=== PATIENT | male | born 1985 | race Caucasian/White ===

== ENCOUNTER 2020-03-31 19:26 | Inpatient (IN) | payer SELFPAY ==
[2020-03-31 19:27] VITALS: BP 149/91; PULSE 110; RESP 18; TEMP 36.8; O2SAT 93; BMI 36.0
--- NOTE | 2020-03-31 19:27 | W.ED.PSYCH ---
HPI - Psych General: Chief Complaint: Psychiatric Symptoms Stated Complaint: SI Time Seen by Provider: 03/31/20 19:27 Source: patient Mode of arrival: ambulatory Limitations: no limitations History of Present Illness: HPI Narrative: Patient is a 34-year-old male who presents to ED today brought by police for complaints of suicidal ideations. According to affidavits filled out by police officers they arrived to patient's home and noted several kitchen knives lying in the floor. He told the officers he was suicidal and had attempted to hang himself in the closet with a belt. Patient tells me he is suicidal. He states his girlfriend or left him this evening. He is also reporting homicidal ideations towards nobody in particular. He admits to auditory hallucinations and states he has had these for years however has never admitted to them. 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 MD complaint: suicidal ideation and feels depressed Context: significant life stressor Associated psychiatric symptoms: depression Associated symptoms: Reports auditory hallucinations, depression and suicidal ideation; Deny visual hallucinations or homicidal ideation Review of Systems Const: Denies: fever(s) or chills Card: Denies: chest pain, palpitations, lightheadedness or syncope Resp: Denies: dyspnea GI: Denies: abdominal pain, nausea, vomiting or diarrhea Musc: Denies: neck pain or back pain Skin/Breast: Denies: rash Neuro: Denies: headache(s), numbness in extremities, weakness in extremities or sensory changes Psych: Reports: depression, hopelessness, auditory hallucinations and suicidal ideation; Denies: anxiety, visual hallucinations or homicidal ideation Physical Exam Const: COMMON NORMALS: no acute distress, average body habitus, patient oriented x3, no limitations, healthy appearing, alert and well nourished GENERAL APPEARANCE: cooperative, well kempt and odor of alcohol detected ORIENTATION/CONSCIOUSNESS: Yes awake, Yes oriented to person, Yes oriented to place and Yes oriented to time OTHER: intoxicated Resp: COMMON NORMALS: normal respiratory effort and clear to auscultation bilaterally AUSCULTATION: clear to auscultation bilaterally Cardio: COMMON NORMALS: regular rate and regular rhythm RATE: regular rate RHYTHM: regular rhythm Neuro: ALYSON COMA SCALE: document GCS findings Duncan coma scale eye opening: Spontaneous Alyson coma scale verbal response: Orientated Alyson coma scale motor response: Obey commands Duncan coma scale total score: 15 COMMON NORMALS: patient oriented x3 SENSORIUM/ORIENTATION: Yes alert, Yes oriented to person, Yes oriented to place and Yes oriented to time Psych: COMMON NORMALS: mental status grossly normal, Normal thought process present, cooperative, normal affect and activity/motor behavior normal APPEARANCE: Yes grossly normal and Yes well kempt ACTIVITY/MOTOR BEHAVIOR: Yes appropriate eye contact and No psychomotor agitation SPEECH: Yes slurred (slightly-secondary to intoxication) MOOD & AFFECT: Yes sad and Yes tearful THOUGHT PROCESS: Normal thought process present THOUGHT CONTENT: Yes Normal thought content present ATTENTION/CONCENTRATION: Yes attention grossly intact and Yes concentration grossly intact MEMORY/COGNITION: Yes memory grossly intact and Yes cognition grossly intact INSIGHT: Good insight present (Psych) JUDGEMENT: Fair judgement present (Psych) MDM - Psych Lab Data: Labs: Lab Results 03/31/20 03/31/20 Range/Units 19:59 19:59 WBC 7.2 (4.0-10.0) 10^3/ uL RBC 5.39 H (4.1-5.3) 10^6/u L Hgb 16.4 (11.7-16.6) g/dL Hct 47.2 (42.0-52.0) % MCV 87.6 (80-94) fL MCH 30.4 (28.0-34.0) pg MCHC 34.7 (30.0-36.0) g/dL RDW 12.2 (12.1-15.1) % Plt Count 291 (130-400) 10^3/c mm MPV 9.7 (7.4-10.4) fL Neut % (Auto) 67.5 % Lymph % (Auto) 26.0 % [place] % (Auto) 4.8 % Eos % (Auto) 0.4 % Baso % (Auto) 0.6 % Neut # (Auto) 4.88 (1.8-7.7) 10^3/u L Lymph # (Auto) 1.9 (0.8-4.8) 10^3/u L [place] # (Auto) 0.4 (0.2-0.9) 10^3/u L Eos # (Auto) 0.0 (0.0-0.8) 10^3/u L Baso # (Auto) 0.0 (0.0-0.1) 10^3/u L Nucleated RBC % (a uto) 0 % Nucleated RBCs # 0.0 /100WBC Sodium 143 (136-145) mmol/L Potassium 3.9 (3.5-5.1) mmol/L Chloride 108 H (98-107) mmol/L Carbon Dioxide 20 L (22-29) mmol/L Anion Gap 18.9 (5-19) BUN 9 (6-20) mg/dL Creatinine 0.8 (0.7-1.2) mg/dL GFR Calculation 110.0 (90-130) mL/min Glucose 129 H (65-115) mg/dL Calculated Osmolal ity 294 (285-295) mOsm/k g Calcium 8.5 (8.5-10.5) mg/dL Total Bilirubin 0.2 (0.15-1.2) mg/dL AST 45 H (0-40) U/L ALT 60 H (0-41) U/L Alkaline Phosphata se 121 (40-130) IU/L Total Protein 7.9 (6.6-8.7) g/dL Albumin 4.8 (3.5-5.2) g/dL Globulin 3.1 (1.3-4.6) g/dL Salicylates < 0.3 L (3-10) mg/dL Acetaminophen < 5.0 L (10-30) ug/mL Ethyl Alcohol 261 H (0-10) mg/dL Discharge Plan Discharge Patient Disposition: Admitted As Inpatient Admit Provider: Melody Lombardi Clinical Impression: Suicidal ideation Acute alcohol intoxication Qualifiers: Complication of substance-induced condition: uncomplicated Qualified Code(s): F10.920 - Alcohol use, unspecified with intoxication, uncomplicated Condition: Stable Coding Level of Care Code ED Psychologist Educational for [facility] Fwd Exam Detailed
[2020-03-31 20:03] LABS: Basophils % 0.6 %; Eosinophils % 0.4 %; Hematocrit 47.2 % (42.0-52.0); Hemoglobin 16.4 g/dL (11.7-16.6); Lymphocytes # 1.9 10^3/uL (0.8-4.8); Mean Corpuscular HGB Conc 34.7 g/dL (30.0-36.0); Mean Corpuscular Hemoglobin 30.4 pg (28.0-34.0); Mean Corpuscular Volume 87.6 fL (80-94); Mean Platelet Volume 9.7 fL (7.4-10.4); Monocytes # 0.4 10^3/uL (0.2-0.9); Monocytes % 4.8 %; Neutrophils # 4.88 10^3/uL (1.8-7.7); Neutrophils % 67.5 %; Nucleated Red Blood Cells % 0 %; Platelet Count 291 10^3/cmm (130-400); Red Blood Count 5.39 10^6/uL (4.1-5.3); Red Cell Distribution Width 12.2 % (12.1-15.1); White Blood Count 7.2 10^3/uL (4.0-10.0)
[2020-03-31 20:20] LABS: Alanine Aminotransferase 60 U/L (0-41); Albumin Level 4.8 g/dL (3.5-5.2); Alcohol Level 261 mg/dL (0-10); Alkaline Phosphatase 121 IU/L (40-130); Anion Gap 18.9 (5-19); Aspartate Amino Transferase 45 U/L (0-40); Blood Urea Nitrogen 9 mg/dL (6-20); Calcium 8.5 mg/dL (8.5-10.5); Carbon Dioxide 20 mmol/L (22-29); Chloride 108 mmol/L (98-107); Creatinine Clr Calc Pharmacy 148.3679; Globulin 3.1 g/dL (1.3-4.6); Glucose 129 mg/dL (65-115); Osmolality Calculated 294 mOsm/kg (285-295); Potassium 3.9 mmol/L (3.5-5.1); Sodium 143 mmol/L (136-145); Total Bilirubin 0.2 mg/dL (0.15-1.2); Total Protein 7.9 g/dL (6.6-8.7)
[2020-03-31 20:22] LABS: Acetaminophen < 5.0 ug/mL (10-30); Salicylate < 0.3 mg/dL (3-10)
[2020-03-31] MEDS: LORazepam 2 mg/mL INJ 1 mL IM (20:25)
--- NOTE | 2020-03-31 20:35 | PC.NURSE ---
Pt was uncooperative. Police present, sitter at room. Pt refuses to provide urine sample and refuses to change into scrubs. Medication administered and pt now resting on bed sleepy. Pt still in personal shorts but pockets clears and other belongings removed at this time
[2020-03-31 23:27] VITALS: BP 132/84; PULSE 75; RESP 18; TEMP 36.8; O2SAT 93
--- NOTE | 2020-04-01 04:52 | PC.NURSE ---
PATIENT AMBULATED TO BENCH BY NURSES STATION, UNSTEADY ON FEET. DEMANDING TO LEAVE AND WANTS HIS CELL PHONE NOW. SAYS HE DOES NOT HAVE TO STAY HERE AND DOES NOT KNOW WHY HE IS HERE. INST THAT HE HAD ATTEMPTED TO HARM SELF BY HANGING AND KNIVES, HE STATED I DID??.. AMBULATED TO ROOM WITH ASSIST OF 2, KEEPS LEANING BACK AND UNABLE TO STAND UP STRAIGHT.
--- NOTE | 2020-04-01 05:00 | PC.NURSE ---
PT GIVEN PRN MEDS TYLENOL FOR HEADACHE, TRAZODONE FOR SLEEP AND VISTARIL FOR ANXIETY PER REQUEST.
[2020-04-01] MEDS: nicotine 2 mg Gum BUCCAL ×2 (05:58→15:04)
[2020-04-01 06:00] VITALS: BP 149/89; PULSE 108; RESP 16; TEMP 36.4; O2SAT 96
--- NOTE | 2020-04-01 06:16 | PC.NURSE ---
Patient began to wake up and is very upset about being in this unit. He stated that he wants to leave, he wants to smoke, and he wants his phone. As he became more alert, he has stated that he wants to , he hurts everywhere, and he don't want to feel anything. I asked him why he felt this way. His reply is My wants a divorce, out of no where, she is trying to kick me out of MY HOUSE... and my whole life is shit. He asked me to fucking kill him, please. I cant do this anymore. He is upset, depressed, anxious, and mad that this is the result of his actions. He is concerned about losing his job. 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 He is upset that he received drugs in the ED.. Ketamine and Ativan.. against his will. He is a smoker and received nicotine gum this morning. He is adamant that this is not where he belongs and feels kidnapped. Patient was told that he is on a 96 hour hold for his safety. He did not seem to comprehend how this occurred and will need this process explained again. Pt becomes angry easily as he is frustrated by his new surroundings. I spoke to DR. Winston regarding the statements made by the patient. I was advised by physician that he is only to receive [facility] protocol meds for withdrawl symptoms until he is seen by him. Will continue to monitor the patient. Patients roommate is concerned that this patient will become violent and tear up his room. He is very upset. media liaison officer, Judah, came down to help calm this patient and return him to his room.
--- NOTE | 2020-04-01 06:22 | PC.NURSE ---
pt very upset cause he was admitted. states he doesn't remember anything after he was given some shots in the ER. states he wants out of here quick, or i'll start tearing s@#t up. was told he has to see the Dr first.
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
[2020-04-01 13:49] VITALS: BP 169/84; PULSE 86; RESP 18; TEMP 37.1; O2SAT 96
[2020-04-01] MEDS: hyDROXYzine 25 mg Capsule 50 MG PO (20:29)
[2020-04-01] MEDS: acetaminophen 325 mg Tablet 650 MG PO (20:29)
[2020-04-01] MEDS: trazodone 50 mg Tablet PO (20:29)
[2020-04-01 22:00] VITALS: BP 161/70; PULSE 90; RESP 18; TEMP 36.7; O2SAT 97
[2020-04-02 06:00] VITALS: RESP 16
[2020-04-02] MEDS: nicotine 2 mg Gum BUCCAL ×2 (10:47→12:54)
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
[2020-04-02 13:43] VITALS: RESP 16
== END 2020-04-02 13:54 | disposition home or self-care (01) | DRG 897 ==
LOC: ER 20:47 → NP 23:03
PROVIDERS: Physician Assistant; Admitting Provider Psychiatry & Neurology Psychiatry; Visit Provider Psychiatry & Neurology Psychiatry
DX: F10.920 Alcohol use, unspecified with intoxication, uncomplicated (principal); R45.851 Suicidal ideations; Z63.0 Problems in relationship with spouse or partner; F43.25 Adjustment disorder with mixed disturbance of emotions and conduct; E66.9 Obesity, unspecified; Z68.36 Body mass index [BMI] 36.0-36.9, adult
CPT/HCPCS: 12345; 36415; 80053; 80307; 85025; 96372; 99284; J2060; J3490